=== PATIENT | female | born 1980 | race Caucasian/White ===

== ENCOUNTER 2017-01-25 13:13 | Emergency (ER) | payer OTHER ==
--- NOTE | ~2017-01-25 | ER ---
PATIENT'S NAME: BANDAR PHAN [facility] AGE: 37 Y [address] ROOM: [place] [id number] LOCATION: [facility] ADMIT DATE: 01/25/2017 ER/Outpatient Report DISCHARGE DATE: 01/25/2017 FAMILY PHYSICIAN: Mariana Tabor ATTENDING PHYSICIAN: Jona Ernst Time of Arrival: 1352 hours. Time of Evaluation: 1352 hours. CHIEF COMPLAINT: Migraine headache. HISTORY OF PRESENT ILLNESS: The patient states she has had a history of migraine headaches, have been occurring more frequently over the past year. This would be the third one that she has had to this magnitude since February of 2016. She said the pain began approximately a week ago. It has just continued to intensify as the week has gone on. It is worse today and that she is more nauseated than she had been. She is nauseated, has not vomited. Having generalized frontal head discomfort and some neck discomfort. She does have photophobia but no visual changes. She states that her headache that she has is the same to headaches that she has had in the past. ALLERGIES: ON HER CHART AND REVIEWED BY ME. MEDICATIONS: On her chart and reviewed by me. PAST MEDICAL HISTORY: Migraines, Sjogren's disease, lupus, history of Lyme disease. PAST SURGICAL HISTORY: Negative. SOCIAL HISTORY: She lives with her . Denies use of drugs, alcohol, or tobacco. REVIEW OF SYSTEMS: Negative other than those mentioned in the HPI. PHYSICAL EXAMINATION: VITAL SIGNS: She weights 79.8 kg, blood pressure is 126/74, pulse of 100, respirations 16, temperature of 97.4 tympanic, O2 saturations 100% on room air. PATIENT'S NAME: BANDAR PHAN [facility] AGE: 37 Y [address] ROOM: [place] [id number] LOCATION: [facility] ADMIT DATE: 01/25/2017 ER/Outpatient Report DISCHARGE DATE: 01/25/2017 FAMILY PHYSICIAN: Mariana Tabor ATTENDING PHYSICIAN: Jona Ernst GENERAL: She is awake, alert, and oriented x4. SKIN: Her skin is pink, warm, and dry. RESPIRATIONS: Even and nonlabored. Lung sounds are clear throughout. HEART: Regular rate and rhythm. EXTREMITIES: She has good hand grasps. Able to move all extremities strongly and equally. NEUROLOGIC: No neurological deficits noted. EMERGENCY DEPARTMENT COURSE: The patient was given Toradol 60 mg IM, Phenergan 50 mg IM. IMPRESSION: Headache. PLAN: Home, rest, fluids. Continue her current medications. If her symptoms persist or worsen, she should follow up with her primary provider in the next 24 -48 hours or return to the ER. She verbalized understanding. BRIANNA BARAJAS APRN FOR MD ROSELINE ROUSSEAU/modl /[id number] d: 01/25/173 t: 01/27/17 1827, OUTPATIENT REPORT
== END 2017-01-25 14:30 | disposition disaster alternative care site (69) ==
LOC: GMED 13:13
DX: R51 Headache (principal); Z79.899 Other long term (current) drug therapy
CPT/HCPCS: J1885; J2550